=== PATIENT | female | born 1975 | race Caucasian/White ===

== ENCOUNTER 2016-06-01 23:09 | Emergency (ER) | payer OTHER ==
[2016-06-02] MEDS ORDERED: KETOROLAC 30 MG/ML 1 ML VIAL IVP STA (00:36)
[2016-06-02] MEDS ORDERED: SODIUM CHLORIDE 0.9% 1,000 ML IV ONE (00:37)
[2016-06-02] MEDS ORDERED: ORPHENADRINE 30 MG/ML 2 ML VIAL IVP STA (00:37)
[2016-06-02] MEDS ORDERED: SODIUM CHLORIDE 0.9% 1,000 ML IV SCH (00:45)
[2016-06-02 01:00] LABS: Appearance,Urine Cloudy (Clear); Bilirubin,Urine Negative (Negative); Glucose,Urine (UA) Negative (Negative); Ketones,Urine Negative (Negative); Leukocyte Esterase,Urine Large (Negative); Mucus,Urine Occasional /hpf; Nitrite,Urine Negative (Negative); PH, Urine 5.5 (5.0-8.0); Particle Count 9270; Protein,Urine Trace (Negative); RBC,Urine >182 /hpf (0-5); Specific Gravity,Urine 1.011 (1.001-1.035); Squamous Epithelial Cell,Urine 2 /hpf (0-4); UA Billing (MACRO vs. MICRO) MICRO; Urobilinogen,Urine <2.0 mg/dL (<2.0); WBC,Urine 150 /hpf (0-5)
[2016-06-02 01:07] VITALS: RESP 16
[2016-06-02 01:23] LABS: Basophils % (A) 0 %; CH 31.8; CHCM 34.9; Eosinophils # (A) 0.3 k/uL (0-0.7); Eosinophils % (A) 2 %; HCT 41.2 % (34.0-46.0); HDW 2.45; Luc # (Auto) 0.21; Luc % (Auto) 1; Lymphocytes # (A) 1.8 k/uL (1.0-4.8); Lymphocytes % (A) 11 %; MCH 31.1 pg (25.0-35.0); MCV 91.5 fL (80.0-100.0); Mean Platelet Volume 6.5; Monocytes # (A) 0.8 k/uL (0-1.0); Monocytes % (A) 5 %; Neutrophils # (A) 13.2 k/uL (1.3-7.7); Neutrophils % (A) 81 %; RDW 12.5 % (11.5-15.5); WBC 16.3 k/uL (3.8-10.6); WBC (Perox) 16.15
[2016-06-02 01:42] LABS: ALT 31 U/L (9-52); AST 23 U/L (14-36); Alkaline Phosphatase 84 U/L (38-126); Anion Gap 13 mmol/L; Blood Urea Nitrogen 11 mg/dL (7-17); Calcium 10.2 mg/dL (8.4-10.2); Carbon Dioxide 21 mmol/L (22-30); Chloride 104 mmol/L (98-107); Glucose 102 mg/dL (74-99); Non-African American GFR(MDRD) >60 (>60 ml/min/1.73 sqM); Sodium 138 mmol/L (137-145); Total Bilirubin 0.6 mg/dL (0.2-1.3); Total Protein 7.3 g/dL (6.3-8.2)
--- NOTE | 2016-06-02 01:53 | ED ---
General Adult HPI - General Chief complaint: Back Pain/Injury Stated complaint: Rib Pain Time Seen by Provider: 06/02/16 00:27 Source: patient, RN notes reviewed Mode of arrival: ambulatory Limitations: no limitations - History of Present Illness Initial comments: Patient is a 40-year-old female chief complaint of right-sided rib and back pain radiating towards the lower quadrants. Patient reports that yesterday she had a volleyball turn minute and today she noticed the pain. She states the pain is worse with movement. Patient states that the pain is currently a 10 out of 10 and she is having difficulty moving. Patient reports initial feels feels bloated and some distention in her right upper quadrant. She is currently on her menstrual cycle. She states that she's had no dysuria or hematuria or vaginal discharge. Patient denies any changes in bowel movements. She states she did have a massage today and felt somewhat better after that however the symptoms became increasingly worse this evening. Patient denies any fever or chills. Patient states the pain is not worse with eating. - Related Data Previous Rx's Medication Instructions Recorded Ciprofloxacin HCl [Cipro] 500 mg PO Q12HR #14 tablet 06/02/16 Cyclobenzaprine [Flexeril] 10 mg PO TID #15 tab 06/02/16 traMADol HCl [Ultram] 50 mg PO Q6H PRN #15 tab 06/02/16 Allergies Allergy/AdvReac Type Severity Reaction Status Date / Time cefotaxime [From Claforan] Allergy Rash/Hives Verified 06/01/16 23:20 Review of Systems ROS Statement: Those systems with pertinent positive or pertinent negative responses have been documented in the HPI. ROS Other: All systems not noted in ROS Statement are negative. Past Medical History Past Medical History: No Reported History History of Any Multi-Drug Resistant Organisms: None Reported Past Surgical History: Orthopedic Surgery Additional Past Surgical History / Comment(s): ACL, PCL Right knee Past Psychological History: No Psychological Hx Reported Smoking Status: Current every day smoker Past Alcohol Use History: Occasional Past Drug Use History: None Reported General Exam - General Exam Comments Initial Comments: Pleasant 40-year-old female. No distress. Limitations: no limitations General appearance: alert, in no apparent distress Head exam: Present: atraumatic, normocephalic, normal inspection Eye exam: Present: normal appearance, PERRL, EOMI. Absent: scleral icterus, conjunctival injection, periorbital swelling ENT exam: Present: normal exam, mucous membranes moist Neck exam: Present: normal inspection. Absent: tenderness, meningismus, lymphadenopathy Respiratory exam: Present: normal lung sounds bilaterally. Absent: respiratory distress, wheezes, rales, rhonchi, stridor Cardiovascular Exam: Present: regular rate, normal rhythm, normal heart sounds. Absent: systolic murmur, diastolic murmur, rubs, gallop, clicks GI/Abdominal exam: Present: soft, tenderness (Significant tenderness over the right upper quadrant and right flank.), normal bowel sounds. Absent: distended , guarding, rebound, rigid Extremities exam: Present: normal inspection, full ROM, normal capillary refill. Absent: tenderness, pedal edema, joint swelling, calf tenderness Back exam: Present: normal inspection Neurological exam: Present: alert, oriented X3, CN II-XII intact Psychiatric exam: Present: normal affect, normal mood Course Vital Signs 06/01/16 06/02/16 23:16 01:06 Temperature 97.6 F Pulse Rate 115 H 85 Respiratory 20 16 Rate Blood Pressure 132/87 134/85 O2 Sat by Pulse 97 96 Oximetry Medical Decision Making - Medical Decision Making Patient is a 40-year-old female chief complaint of right-sided rib and back pain radiating towards the lower quadrants. Patient reports that yesterday she had a volleyball turn minute and today she noticed the pain. She states the pain is worse with movement. Patient states that the pain is currently a 10 out of 10 and she is having difficulty moving. Patient reports initial feels feels bloated and some distention in her right upper quadrant. She is currently on her menstrual cycle. She states that she's had no dysuria or hematuria or vaginal discharge. Patient's lab work was reviewed. She does have an elevated of EC at 16.8. Patient's urine is contaminated with blood from her menstrual cycle. There is significant amount of white blood cells. Culture is obtained. Given patient's significant flank tenderness and behavior CT abdomen and pelvis was obtained without contrast. Is also indicated to rule out possible kidney stone could be masked by her urine from her menstrual cycle. Patient is been given IV hydration and pain medication. CT shows normal appendix. Small sliding hiatus hernia. No free fluid free air or bowel obstruction. No evidence of hydroureter nephrosis or biliary ductal dilation. Liver is normal. A millimeter low density nodular thickening on the left adrenal gland likely are present a small adenoma. Patient will be discharged at this time for treatment of urinary tract infection and muscle skeletal pain. Patient understands treatment plan will comply. Return parameters were discussed. - Lab Data Result diagrams: 06/02/16 00:50 06/02/16 00:50 Lab Results 06/02/16 06/02/16 06/02/16 Range/Units 00:49 00:50 00:50 WBC 16.3 H (3.8-10.6) k/uL RBC 4.50 (3.80-5.40) m/uL Hgb 14.0 (11.4-16.0) gm/dL Hct 41.2 (34.0-46.0) % MCV 91.5 (80.0-100.0) fL MCH 31.1 (25.0-35.0) pg MCHC 34.0 (31.0-37.0) g/dL RDW 12.5 (11.5-15.5) % Plt Count 407 (150-450) k/uL Neutrophils % 81 % Lymphocytes % 11 % Monocytes % 5 % Eosinophils % 2 % Basophils % 0 % Neutrophils # 13.2 H (1.3-7.7) k/uL Lymphocytes # 1.8 (1.0-4.8) k/uL Monocytes # 0.8 (0-1.0) k/uL Eosinophils # 0.3 (0-0.7) k/uL Basophils # 0.0 (0-0.2) k/uL Sodium 138 (137-145) mmol/L Potassium 4.0 (3.5-5.1) mmol/L Chloride 104 (98-107) mmol/L Carbon Dioxide 21 L (22-30) mmol/L Anion Gap 13 mmol/L BUN 11 (7-17) mg/dL Creatinine 0.90 (0.52-1.04) mg/dL Est GFR (MDRD) Af Amer >60 (>60 ml/min/1.73 sqM) Est GFR (MDRD) Non-Af >60 (>60 ml/min/1.73 sqM) Glucose 102 H (74-99) mg/dL Calcium 10.2 (8.4-10.2) mg/dL Total Bilirubin 0.6 (0.2-1.3) mg/dL AST 23 (14-36) U/L ALT 31 (9-52) U/L Alkaline Phosphatase 84 (38-126) U/L Total Protein 7.3 (6.3-8.2) g/dL Albumin 4.5 (3.5-5.0) g/dL Urine Color Yellow Urine Appearance Cloudy H (Clear) Urine pH 5.5 (5.0-8.0) Ur Specific Viola 1.011 (1.001-1.035) Urine Protein Trace H (Negative) Urine Glucose (UA) Negative (Negative) Urine Ketones Negative (Negative) Urine Blood Large H (Negative) Urine Nitrite Negative (Negative) Urine Bilirubin Negative (Negative) Urine Urobilinogen <2.0 (<2.0) mg/dL Ur Leukocyte Esterase Large H (Negative) Urine RBC >182 H (0-5) /hpf Urine WBC 150 H (0-5) /hpf Ur Squamous Epith Cells 2 (0-4) /hpf Urine Mucus Occasional H (None) /hpf - Radiology Data Radiology results: report reviewed CT abdomen and pelvis is negative for any acute process. Normal appendix, small sliding hiatus hernia. No free fluid free air, small bowel obstruction, hydroureter nephrosis. Normal size without hepatomegaly suggested and prior abdominal radiograph. It with 3 mm density and thickening of the left adrenal gland likely represents a small adenoma. Disposition Clinical Impression: Flank pain, Muscle pain, UTI (urinary tract infection) Disposition: HOME SELF-CARE Condition: Good Instructions: Acute Low Back Pain (ED), Urinary Tract Infection in Women (ED) Additional Instructions: Patient advised to rest and increase fluids and take prescriptions as directed. Follow-up with primary care provider within the next 2-3 days. Return to the emergency department if any alarming signs or symptoms occur. Prescriptions: Ciprofloxacin HCl [Cipro] 500 mg PO Q12HR #14 tablet Cyclobenzaprine [Flexeril] 10 mg PO TID #15 tab traMADol HCl [Ultram] 50 mg PO Q6H PRN #15 tab PRN Reason: Pain Referrals: Napoleon Johansen DO [Primary Care Provider] - 1-2 days Time of Disposition: 04:24
--- NOTE | 2016-06-02 02:47 | XR ---
EXAM: XR Chest, 2 Views. CLINICAL HISTORY: Reason: Pain TECHNIQUE: Frontal and lateral views of the chest. COMPARISON: No relevant prior studies available. FINDINGS: Lungs: Unremarkable. No consolidation. Pleural space: Unremarkable. No pneumothorax. Heart: Unremarkable. No cardiomegaly. Mediastinum: Unremarkable. Bones/joints: Unremarkable. IMPRESSION: No acute cardiopulmonary process.
[2016-06-02] MEDS ORDERED: HYDROmorphone 1 MG/ML 1 ML SYRINGE IVP STA (02:49)
--- NOTE | 2016-06-02 02:55 | XR ---
EXAM: XR Abdomen Complete, 2 or More Views. CLINICAL HISTORY: Reason: Pain TECHNIQUE: Frontal view of the abdomen/pelvis with upright view of the abdomen. COMPARISON: No relevant prior studies available. FINDINGS: Intraperitoneal space: No free air evident on the upright view. Gastrointestinal tract: Mildly increased proximal colonic stool. No dilated small bowel loops to suggest conventional radiographic evidence for obstruction. Organs: Possible hepatomegaly with the liver measuring up to 20 cm. Bones/joints: Unremarkable. IMPRESSION: 1. Mildly increased proximal colonic stool without dilated small bowel loops to suggest conventional radiograph evidence for obstruction. 2. No free air evident on the upright view. 3. Possible hepatomegaly.
--- NOTE | 2016-06-02 04:21 | CT ---
EXAM: CT Abdomen and Pelvis Without Intravenous Contrast. CLINICAL HISTORY: Reason: Pain TECHNIQUE: Axial computed tomography images of the abdomen and pelvis without intravenous contrast. CTDI is 22.4 mGy and DLP is 1230.7 mGy-cm This CT exam was performed using one or more of the following dose reduction techniques: automated exposure control, adjustment of the mA and/or kV according to patient size, and/or use of iterative reconstruction technique. Coronal and sagittal reformatted images were created and reviewed. COMPARISON: No relevant prior studies available. FINDINGS: Lower thorax: Small sliding hiatus hernia. Right lower lobe atelectasis. ABDOMEN: Liver: Normal in size (16.5 cm). No hepatomegaly as suggested by plain film. Gallbladder and bile ducts: No radiopaque gallstones or common bile duct dilation. Pancreas: Unremarkable. No ductal dilation or peripancreatic inflammatory stranding. Spleen: Unremarkable. No splenomegaly. Adrenals: 8.3 mm low-density nodular thickening of the left adrenal gland. Kidneys and ureters: Unremarkable. No obstructing radiopaque stones or hydroureteronephrosis. Stomach and bowel: Unremarkable. No small bowel obstruction. No bowel wall thickening allowing for underdistention. Appendix: Normal appendix. PELVIS: Bladder: Unremarkable. No stones. Reproductive: Unremarkable as visualized. ABDOMEN and PELVIS: Intraperitoneal space: Unremarkable. No free air. No significant fluid collection. Bones/joints: No acute fracture. No dislocation. Soft tissues: Tiny fat-containing umbilical hernia. Vasculature: Unremarkable. No abdominal aortic aneurysm. Lymph nodes: Unremarkable. No enlarged lymph nodes. IMPRESSION: 1. Normal appendix. 2. Small sliding hiatus hernia. 3. No free fluid, free air, small bowel obstruction, colonic wall thickening, hydroureteronephrosis, or biliary ductal dilatation. 4. Normal liver size without hepatomegaly as suggested by prior abdominal radiograph. 5. 8.3 mm low-density nodular thickening of the left adrenal gland likely represents a small adenoma
[2016-06-02] MEDS ORDERED: CIPROFLOXACIN HCL 500 MG TAB PO STA (04:27)
[2016-06-02] MEDS ORDERED: traMADol 50 MG STARTER PACK 3 TAB BTL PO STA (04:27)
[2016-06-02 04:59] VITALS: BP 138/71; PULSE 72; TEMP 96.8
== END 2016-06-02 04:45 | disposition home or self-care (01) ==
LOC: EC 23:09
DX: N39.0 Urinary tract infection, site not specified (principal); M79.1 Myalgia; R10.11 Right upper quadrant pain; K44.9 Diaphragmatic hernia without obstruction or gangrene; R07.81 Pleurodynia; E27.8 Other specified disorders of adrenal gland; F17.200 Nicotine dependence, unspecified, uncomplicated; Z88.1 Allergy status to other antibiotic agents
CPT/HCPCS: 36415; 80053; 85025; 81001; 71020; 74000; 74176; 99284; 96374; 96375 ×2; 96361 ×3; J2360; J1885; J1170

== ENCOUNTER → 2020-01-15 | Outpatient (CLI) | payer BC ==
[2020-01-15 15:09] LABS: African American GFR (CKD) 79.9 (60.0-200.0); Albumin 4.6 g/dL (3.80-4.90); Albumin/Globulin Ratio 2.19 (1.60-3.17); Anion Gap 7.2 mmol/L (4.00-12.00); Calcium 9.8 mg/dL (8.7-10.3); Carbon Dioxide 24.8 mmol/L (21.6-31.8); Chol/HDL Ratio 3.73; Globulin 2.1 g/dL (1.6-3.3); LDL Cholesterol,Calculated 90.2 mg/dL (0.0-131.0); Non-African American GFR(CKD) 68.9 (60.0-200.0); Potassium 4.4 mmol/L (3.5-5.5); Total Bilirubin 0.4 mg/dL (0.3-1.2); Total Protein 6.7 g/dL (6.2-8.2); VLDL Calculation 32.8 mg/dL (5.00-40.00)
== END | disposition home or self-care (01) ==
LOC: LABWHC1 08:10
PROVIDERS: ATTEND Family Medicine
DX: Z00.00 Encounter for general adult medical examination without abnormal findings (principal); E55.9 Vitamin D deficiency, unspecified
CPT/HCPCS: 36415; 80053; 80061; 82306